=== PATIENT | female | born 1950 | race Hispanic/Latino ===

== ENCOUNTER 2017-11-17 03:46 | Inpatient (IN) | payer MEDICARE, MEDICAID ==
[~2017-11-17] VITALS: Ht 165.1 cm; Wt 55.5 kg
[2017-11-17 03:10] VITALS: BP 159/60
[2017-11-17] MEDS ORDERED: DEXTROSE 50%-WATER 50 ML DISP.SYRIN IV ONE (04:39)
[2017-11-17] MEDS ORDERED: DEXTROSE 50%-WATER 50 ML DISP.SYRIN IV PRN (04:45)
[2017-11-17] MEDS ORDERED: GLUCAGON 1MG KIT 1 MG ML IM PRN (04:45)
[2017-11-17] MEDS ORDERED: SODIUM CHLORIDE 0.9% 1000ML 1,000 ML IV SCH (05:43)
[2017-11-17 05:56] LABS: BASOPHILS % (AUTO) 0.4 % (0.0-5.0); EOSINOPHILS % (AUTO) 0.8 % (0.0-8.0); HEMATOCRIT 32.9 % (36-48); LYMPHOCYTES % (AUTO) 7.5 % (21.0-51.0); MEAN CORPUSCULAR HEMOGLOBIN 30.6 pg (27.0-33.0); MEAN CORPUSCULAR HGB CONC 32.5 g/dL (32.0-36.0); MEAN CORPUSCULAR VOLUME 94.3 fL (79-99); MONOCYTES % (AUTO) 11.4 % (3.0-13.0); NEUTROPHILS % (AUTO) 79.9 % (40.0-77.0); PLATELET COUNT (AUTO) 69 K/uL (130-400); RED BLOOD CELL COUNT(AUTO) 3.49 MIL/uL (4.00-5.50); RED CELL DISTRIBUTION WIDTH 18.8 % (11.0-15.5); WHITE BLOOD COUNT (AUTO) 5.5 K/uL (4.8-10.8)
[2017-11-17 06:04] LABS: PARTIAL THROMBOPLASTIN TIME 62.6 SEC (26.3-35.5)
[2017-11-17 06:08] LABS: HEMOGLOBIN A1C 4.5 % (4.0-6.0)
[2017-11-17 06:14] LABS: CREATININE 4.6 mg/dL (0.5-1.5); POTASSIUM 4.4 mmol/L (3.5-5.1)
[2017-11-17] MEDS: INSULIN HUMULIN R 100 UNIT/ML 3ML SQ SCH ×4 (07:30→21:00)
[2017-11-17 07:33] VITALS: BP 164/89
[2017-11-17 07:53] LABS: INR 4.38 (0.85-1.15); PROTHROMBIN TIME 44.7 SEC (9.6-11.6)
[2017-11-17] MEDS ORDERED: METO100T14 PO (08:25)
[2017-11-17] MEDS ORDERED: WARF3TAB59 PO (08:25)
[2017-11-17] MEDS ORDERED: DOXE25 PO (08:25)
[2017-11-17] MEDS ORDERED: SIMV40TA5 PO (08:25)
[2017-11-17] MEDS ORDERED: HYDR-4154 PO (08:25)
[2017-11-17] MEDS ORDERED: DIGO125T87 PO (08:25)
[2017-11-17] MEDS ORDERED: PANTOPRAZOLE SODIUM 40 MG TABLET.DR PO SCH (09:00)
[2017-11-17] MEDS ORDERED: MORPHINE SULFATE 2 MG/ML 1ML SYG IVP PRN (09:45)
[2017-11-17] MEDS: HYDRALAZINE HCL 25 MG TABLET PO SCH (11:08)
[2017-11-17] MEDS: METOPROLOL TARTRATE 50 MG TAB PO SCH (11:08)
[2017-11-17] MEDS: DIGOXIN 125 MCG TABLET PO SCH (11:09)
[2017-11-17 11:33] VITALS: BP 170/76
[2017-11-17 11:39] LABS: PARTIAL THROMBOPLASTIN TIME 59.4 SEC (26.3-35.5)
[2017-11-17 11:42] LABS: INR 5.15 (0.85-1.15); PROTHROMBIN TIME 52.4 SEC (9.6-11.6)
[2017-11-17 13:26] VITALS: BP 134/46
[2017-11-17 16:02] VITALS: BP 134/68
[2017-11-17 19:56] VITALS: BP 139/54
[2017-11-17] MEDS: SIMVASTATIN 20 MG TABLET PO SCH (20:45)
[2017-11-17] MEDS: DOXEPIN HCL 25 MG CAP PO SCH (21:05)
[2017-11-17 22:39] LABS: INR 2.75 (0.85-1.15); PARTIAL THROMBOPLASTIN TIME 49.2 SEC (26.3-35.5); PROTHROMBIN TIME 28.3 SEC (9.6-11.6)
[2017-11-18 00:15] VITALS: BP 139/55
[2017-11-18 03:22] VITALS: BP 149/64
[2017-11-18 04:05] LABS: HEMATOCRIT 34.5 % (36-48); MEAN CORPUSCULAR HEMOGLOBIN 30.1 pg (27.0-33.0); MEAN CORPUSCULAR HGB CONC 31.8 g/dL (32.0-36.0); MEAN CORPUSCULAR VOLUME 94.7 fL (79-99); NUCLEATED RED BLOOD CELLS 0.2 % (0.0-0.19); PLATELET COUNT (AUTO) 60 K/uL (130-400); RED BLOOD CELL COUNT(AUTO) 3.64 MIL/uL (4.00-5.50); RED CELL DISTRIBUTION WIDTH 18.3 % (11.0-15.5); WHITE BLOOD COUNT (AUTO) 5.7 K/uL (4.8-10.8)
[2017-11-18 04:24] LABS: CREATININE 5.6 mg/dL (0.5-1.5); PHOSPHORUS 4.1 mg/dL (2.5-4.9); POTASSIUM 4.6 mmol/L (3.5-5.1)
[2017-11-18 04:37] LABS: INR 3.05 (0.85-1.15); PARTIAL THROMBOPLASTIN TIME 49.5 SEC (26.3-35.5); PROTHROMBIN TIME 31.3 SEC (9.6-11.6)
[2017-11-18] MEDS: INSULIN HUMULIN R 100 UNIT/ML 3ML SQ SCH ×4 (05:32→21:00)
[2017-11-18 07:43] VITALS: BP 161/70
[2017-11-18 10:18] LABS: INR 3.24 (0.85-1.15); PARTIAL THROMBOPLASTIN TIME 48.8 SEC (26.3-35.5); PROTHROMBIN TIME 33.2 SEC (9.6-11.6)
[2017-11-18] MEDS: ZOSYN 3.375GM+NS 50ML 50 ML IV SCH ×2 (10:21→10:29)
[2017-11-18] MEDS: METOPROLOL TARTRATE 50 MG TAB PO SCH (10:23)
[2017-11-18] MEDS: HYDRALAZINE HCL 25 MG TABLET PO SCH (10:24)
[2017-11-18] MEDS: DIGOXIN 125 MCG TABLET PO SCH ×3 (10:24→15:44)
[2017-11-18] MEDS: FOLIC ACID/VITAMIN B COMP W-C 1 MG CAPSULE PO SCH (10:24)
[2017-11-18] MEDS: SUCRALFATE 1 GM/10 ML PO SCH ×3 (10:29→20:50)
[2017-11-18 11:37] VITALS: BP 157/64
[2017-11-18] MEDS ORDERED: SODIUM CHLORIDE 0.9% 250 ML IV ONE (12:05)
[2017-11-18] MEDS: PANTOPRAZOLE SODIUM 40 MG TABLET.DR PO SCH (15:51)
[2017-11-18] MEDS ORDERED: SODIUM CHLORIDE 0.9% 1000ML 1,000 ML IV PRN (16:15)
[2017-11-18] MEDS ORDERED: ALBUMIN (HUMAN) 25% 100 ML IV PRN (16:15)
[2017-11-18] MEDS ORDERED: 0.9% SODIUM CHLORIDE 250 ML IV BAG IV PRN (16:15)
[2017-11-18 16:29] VITALS: BP 136/65
[2017-11-18 20:04] VITALS: BP 153/62
[2017-11-18 20:31] LABS: INR 2.29 (0.85-1.15); PARTIAL THROMBOPLASTIN TIME 44.8 SEC (26.3-35.5); PROTHROMBIN TIME 23.7 SEC (9.6-11.6)
[2017-11-18] MEDS: DOXEPIN HCL 25 MG CAP PO SCH (20:50)
[2017-11-18] MEDS: SIMVASTATIN 20 MG TABLET PO SCH (20:51)
[2017-11-19] VITALS (7 sets, daily range): BP systolic 138–182; BP diastolic 50–77
[2017-11-19 04:05] LABS: BASOPHILS % (AUTO) 0.7 % (0.0-5.0); EOSINOPHILS % (AUTO) 0.3 % (0.0-8.0); HEMATOCRIT 31.3 % (36-48); LYMPHOCYTES % (AUTO) 9.2 % (21.0-51.0); MEAN CORPUSCULAR HEMOGLOBIN 28.9 pg (27.0-33.0); MEAN CORPUSCULAR HGB CONC 30.6 g/dL (32.0-36.0); MEAN CORPUSCULAR VOLUME 94.5 fL (79-99); MONOCYTES % (AUTO) 11.1 % (3.0-13.0); NEUTROPHILS % (AUTO) 78.7 % (40.0-77.0); NUCLEATED RED BLOOD CELLS 0.1 % (0.0-0.19); PLATELET COUNT (AUTO) 79 K/uL (130-400); RED BLOOD CELL COUNT(AUTO) 3.32 MIL/uL (4.00-5.50); RED CELL DISTRIBUTION WIDTH 18.3 % (11.0-15.5); WHITE BLOOD COUNT (AUTO) 5.3 K/uL (4.8-10.8)
[2017-11-19] MEDS: DICYCLOMINE HCL 20 MG TAB PO PRN ×3 (04:07→23:05)
[2017-11-19 04:21] LABS: ALBUMIN 2.6 g/dL (3.5-5.0); BILIRUBIN,DIRECT 0.9 mg/dL (0.0-0.3); BILIRUBIN,TOTAL 1.4 mg/dL (0.2-1.0); CREATININE 3.8 mg/dL (0.5-1.5); POTASSIUM 3.8 mmol/L (3.5-5.1); TOTAL PROTEIN, SERUM 6.3 g/dL (6.0-8.3)
[2017-11-19] MEDS: INSULIN HUMULIN R 100 UNIT/ML 3ML SQ SCH ×4 (06:18→21:00)
[2017-11-19] MEDS: SUCRALFATE 1 GM/10 ML PO SCH ×4 (07:30→22:34)
[2017-11-19] MEDS: PHYTONADIONE 10 MG in SODIUM CHLORIDE 0.9% 50 ML IV SCH (11:59)
[2017-11-19] MEDS: HYDRALAZINE HCL 25 MG TABLET PO SCH (12:00)
[2017-11-19] MEDS: DIGOXIN 125 MCG TABLET PO SCH (12:00)
[2017-11-19] MEDS: FOLIC ACID/VITAMIN B COMP W-C 1 MG CAPSULE PO SCH (12:01)
[2017-11-19] MEDS: METOPROLOL TARTRATE 50 MG TAB PO SCH (12:01)
[2017-11-19] MEDS: PANTOPRAZOLE SODIUM 40 MG TABLET.DR PO SCH ×2 (12:01→16:58)
[2017-11-19] MEDS: ZOSYN 3.375GM+NS 50ML 50 ML IV SCH ×2 (12:02→22:33)
[2017-11-19] MEDS: SIMVASTATIN 20 MG TABLET PO SCH (22:34)
[2017-11-19] MEDS: DOXEPIN HCL 25 MG CAP PO SCH (22:34)
[2017-11-20] VITALS (8 sets, daily range): BP systolic 119–181; BP diastolic 49–76
[2017-11-20 05:44] LABS: BASOPHILS % (AUTO) 0.6 % (0.0-5.0); EOSINOPHILS % (AUTO) 0.3 % (0.0-8.0); HEMATOCRIT 35.1 % (36-48); MEAN CORPUSCULAR HEMOGLOBIN 29.1 pg (27.0-33.0); MEAN CORPUSCULAR HGB CONC 31.2 g/dL (32.0-36.0); MEAN CORPUSCULAR VOLUME 93.3 fL (79-99); MONOCYTES % (AUTO) 9.8 % (3.0-13.0); NEUTROPHILS % (AUTO) 79.3 % (40.0-77.0); NUCLEATED RED BLOOD CELLS 0.1 % (0.0-0.19); PLATELET COUNT (AUTO) 107 K/uL (130-400); RED BLOOD CELL COUNT(AUTO) 3.76 MIL/uL (4.00-5.50); RED CELL DISTRIBUTION WIDTH 18.3 % (11.0-15.5); WHITE BLOOD COUNT (AUTO) 6.6 K/uL (4.8-10.8)
[2017-11-20 05:50] LABS: CREATININE 4.9 mg/dL (0.5-1.5); MAGNESIUM 2.1 mg/dL (1.80-2.40); POTASSIUM 4.1 mmol/L (3.5-5.1)
[2017-11-20 05:54] LABS: INR 1.41 (0.85-1.15); PARTIAL THROMBOPLASTIN TIME 38.8 SEC (26.3-35.5); PROTHROMBIN TIME 14.7 SEC (9.6-11.6)
[2017-11-20] MEDS: INSULIN HUMULIN R 100 UNIT/ML 3ML SQ SCH ×4 (06:03→21:00)
[2017-11-20] MEDS: PANTOPRAZOLE SODIUM 40 MG TABLET.DR PO SCH ×2 (06:21→17:41)
[2017-11-20] MEDS: SUCRALFATE 1 GM/10 ML PO SCH ×4 (06:21→22:21)
[2017-11-20] MEDS: ZOSYN 3.375GM+NS 50ML 50 ML IV SCH ×2 (10:00→22:23)
[2017-11-20] MEDS: PHYTONADIONE 10 MG in SODIUM CHLORIDE 0.9% 50 ML IV SCH (10:00)
[2017-11-20] MEDS: FOLIC ACID/VITAMIN B COMP W-C 1 MG CAPSULE PO SCH (17:41)
[2017-11-20] MEDS: METOPROLOL TARTRATE 50 MG TAB PO SCH (21:00)
[2017-11-20] MEDS: SIMVASTATIN 20 MG TABLET PO SCH (22:22)
[2017-11-20] MEDS: DOXEPIN HCL 25 MG CAP PO SCH (22:23)
[2017-11-20] MEDS: HYDRALAZINE HCL 25 MG TABLET PO SCH (22:23)
[2017-11-21 03:59] LABS: BASOPHILS % (AUTO) 1.2 % (0.0-5.0); EOSINOPHILS % (AUTO) 0.2 % (0.0-8.0); HEMATOCRIT 33.1 % (36-48); LYMPHOCYTES % (AUTO) 11.3 % (21.0-51.0); MEAN CORPUSCULAR HEMOGLOBIN 29.8 pg (27.0-33.0); MEAN CORPUSCULAR HGB CONC 31.6 g/dL (32.0-36.0); MONOCYTES % (AUTO) 10.7 % (3.0-13.0); NEUTROPHILS % (AUTO) 76.6 % (40.0-77.0); PLATELET COUNT (AUTO) 134 K/uL (130-400); RED BLOOD CELL COUNT(AUTO) 3.52 MIL/uL (4.00-5.50); RED CELL DISTRIBUTION WIDTH 17.7 % (11.0-15.5); WHITE BLOOD COUNT (AUTO) 6.7 K/uL (4.8-10.8)
[2017-11-21 04:00] VITALS: BP 161/65
[2017-11-21 04:10] LABS: INR 1.37 (0.85-1.15); PARTIAL THROMBOPLASTIN TIME 31.7 SEC (26.3-35.5); PROTHROMBIN TIME 14.3 SEC (9.6-11.6)
[2017-11-21 04:15] LABS: ALBUMIN 2.6 g/dL (3.5-5.0); BILIRUBIN,TOTAL 1.3 mg/dL (0.2-1.0); CREATININE 3.6 mg/dL (0.5-1.5); POTASSIUM 3.4 mmol/L (3.5-5.1); TOTAL PROTEIN, SERUM 6.5 g/dL (6.0-8.3)
[2017-11-21] MEDS: DICYCLOMINE HCL 20 MG TAB PO PRN (05:33)
[2017-11-21] MEDS: PANTOPRAZOLE SODIUM 40 MG TABLET.DR PO SCH ×2 (06:40→16:30)
[2017-11-21] MEDS: SUCRALFATE 1 GM/10 ML PO SCH ×3 (06:40→21:00)
[2017-11-21] MEDS: INSULIN HUMULIN R 100 UNIT/ML 3ML SQ SCH ×3 (06:41→21:00)
[2017-11-21 08:03] VITALS: BP 170/62
[2017-11-21] MEDS: FOLIC ACID/VITAMIN B COMP W-C 1 MG CAPSULE PO SCH (09:00)
[2017-11-21] MEDS: METOPROLOL TARTRATE 50 MG TAB PO SCH ×2 (09:05→21:01)
[2017-11-21] MEDS: HYDRALAZINE HCL 25 MG TABLET PO SCH ×2 (09:05→21:01)
[2017-11-21] MEDS: DIGOXIN 125 MCG TABLET PO SCH (09:06)
[2017-11-21] MEDS: ZOSYN 3.375GM+NS 50ML 50 ML IV SCH ×2 (09:09→22:32)
[2017-11-21] MEDS: PHYTONADIONE 10 MG in SODIUM CHLORIDE 0.9% 50 ML IV SCH (09:09)
[2017-11-21 12:12] VITALS: BP 159/79
[2017-11-21 15:45] VITALS: BP 155/69
[2017-11-21 20:01] VITALS: BP 139/63
[2017-11-21] MEDS: DOXEPIN HCL 25 MG CAP PO SCH (21:01)
[2017-11-21] MEDS: SIMVASTATIN 20 MG TABLET PO SCH (21:01)
[2017-11-21 23:49] VITALS: BP 140/60
[2017-11-22] VITALS (13 sets, daily range): BP systolic 124–170; BP diastolic 42–76
[2017-11-22 03:44] LABS: MEAN CORPUSCULAR HGB CONC 32.2 g/dL (32.0-36.0); MEAN CORPUSCULAR VOLUME 93.1 fL (79-99); PLATELET COUNT (AUTO) 155 K/uL (130-400); RED BLOOD CELL COUNT(AUTO) 3.55 MIL/uL (4.00-5.50); RED CELL DISTRIBUTION WIDTH 18.4 % (11.0-15.5); WHITE BLOOD COUNT (AUTO) 6.1 K/uL (4.8-10.8)
[2017-11-22 03:51] LABS: CREATININE 4.8 mg/dL (0.5-1.5); POTASSIUM 3.4 mmol/L (3.5-5.1)
[2017-11-22] MEDS: INSULIN HUMULIN R 100 UNIT/ML 3ML SQ SCH ×4 (06:04→20:36)
[2017-11-22] MEDS: SUCRALFATE 1 GM/10 ML PO SCH ×4 (06:05→20:34)
[2017-11-22] MEDS: PANTOPRAZOLE SODIUM 40 MG TABLET.DR PO SCH ×2 (07:30→16:31)
[2017-11-22] MEDS ORDERED: LIDOCAINE HCL-MPF 2% 5ML VIAL ONE (08:44)
[2017-11-22] MEDS ORDERED: BIVALIRUDIN 250 MG/VIAL IV ONE (08:45)
[2017-11-22] MEDS ORDERED: HEPARIN SODIUM 1000UNIT/ML 10ML VIAL ONE (08:45)
[2017-11-22] MEDS ORDERED: IOHEXOL 350 MG/ML 100ML INFUS..BTL IV ONE (08:45)
[2017-11-22] MEDS ORDERED: IOHEXOL-350 50ML VIAL IV ONE (08:45)
[2017-11-22] MEDS ORDERED: NITROGLYCERIN 5 MG/ML 10 ML VIAL IV ONE ×2 (08:45→09:10)
[2017-11-22] MEDS ORDERED: ENALAPRILAT DIHYDRATE 1.25 MG/ML 2ML VIAL IVP ONE ×2 (09:52→10:01)
[2017-11-22] MEDS: PHYTONADIONE 10 MG in SODIUM CHLORIDE 0.9% 50 ML IV SCH (10:00)
[2017-11-22] MEDS: METOPROLOL TARTRATE 50 MG TAB PO SCH ×2 (10:10→20:35)
[2017-11-22] MEDS: HYDRALAZINE HCL 25 MG TABLET PO SCH ×2 (10:10→20:36)
[2017-11-22] MEDS: FOLIC ACID/VITAMIN B COMP W-C 1 MG CAPSULE PO SCH (16:31)
[2017-11-22] MEDS: DIGOXIN 125 MCG TABLET PO SCH (16:32)
[2017-11-22] MEDS: ZOSYN 3.375GM+NS 50ML 50 ML IV SCH (16:32)
[2017-11-22] MEDS: SIMVASTATIN 20 MG TABLET PO SCH (20:35)
[2017-11-22] MEDS: DOXEPIN HCL 25 MG CAP PO SCH (20:36)
[2017-11-22] MEDS: DICYCLOMINE HCL 20 MG TAB PO PRN (20:50)
[2017-11-23 03:36] VITALS: BP 142/70
[2017-11-23] MEDS: ZOSYN 3.375GM+NS 50ML 50 ML IV SCH ×2 (04:02→09:47)
[2017-11-23 04:05] LABS: CREATININE 3.4 mg/dL (0.5-1.5); POTASSIUM 3.7 mmol/L (3.5-5.1)
[2017-11-23] MEDS: INSULIN HUMULIN R 100 UNIT/ML 3ML SQ SCH ×4 (06:33→20:48)
[2017-11-23 06:52] LABS: HEMATOCRIT 37.9 % (36-48); MEAN CORPUSCULAR HEMOGLOBIN 29.2 pg (27.0-33.0); MEAN CORPUSCULAR HGB CONC 31.7 g/dL (32.0-36.0); MEAN CORPUSCULAR VOLUME 92.3 fL (79-99); NUCLEATED RED BLOOD CELLS 0.1 % (0.0-0.19); PLATELET COUNT (AUTO) 148 K/uL (130-400); RED BLOOD CELL COUNT(AUTO) 4.11 MIL/uL (4.00-5.50); RED CELL DISTRIBUTION WIDTH 18.1 % (11.0-15.5); WHITE BLOOD COUNT (AUTO) 6.4 K/uL (4.8-10.8)
[2017-11-23 07:08] VITALS: BP 160/58
[2017-11-23] MEDS: METOPROLOL TARTRATE 50 MG TAB PO SCH ×2 (09:46→20:20)
[2017-11-23] MEDS: HYDRALAZINE HCL 25 MG TABLET PO SCH ×2 (09:47→20:19)
[2017-11-23] MEDS: FOLIC ACID/VITAMIN B COMP W-C 1 MG CAPSULE PO SCH (09:47)
[2017-11-23] MEDS: PANTOPRAZOLE SODIUM 40 MG TABLET.DR PO SCH ×2 (09:47→17:05)
[2017-11-23] MEDS: PHYTONADIONE 10 MG in SODIUM CHLORIDE 0.9% 50 ML IV SCH (09:48)
[2017-11-23] MEDS: DIGOXIN 125 MCG TABLET PO SCH (09:48)
[2017-11-23] MEDS: SUCRALFATE 1 GM/10 ML PO SCH (09:48)
[2017-11-23 11:15] VITALS: BP 167/62
[2017-11-23 16:29] VITALS: BP 159/79
[2017-11-23 19:41] VITALS: BP 158/67
[2017-11-23] MEDS: DOXEPIN HCL 25 MG CAP PO SCH (20:19)
[2017-11-23] MEDS: DICYCLOMINE HCL 20 MG TAB PO PRN (20:19)
[2017-11-23] MEDS: SIMVASTATIN 20 MG TABLET PO SCH (20:19)
[2017-11-23 23:27] VITALS: BP 152/63
[2017-11-24] MEDS: DICYCLOMINE HCL 20 MG TAB PO PRN ×2 (03:05→16:15)
[2017-11-24 03:58] VITALS: BP 157/63
[2017-11-24 04:01] LABS: HEMATOCRIT 32.8 % (36-48); MEAN CORPUSCULAR HEMOGLOBIN 30.4 pg (27.0-33.0); MEAN CORPUSCULAR HGB CONC 32.5 g/dL (32.0-36.0); MEAN CORPUSCULAR VOLUME 93.4 fL (79-99); PLATELET COUNT (AUTO) 157 K/uL (130-400); RED BLOOD CELL COUNT(AUTO) 3.51 MIL/uL (4.00-5.50); RED CELL DISTRIBUTION WIDTH 18.6 % (11.0-15.5); WHITE BLOOD COUNT (AUTO) 5.5 K/uL (4.8-10.8)
[2017-11-24 04:11] LABS: CREATININE 4.9 mg/dL (0.5-1.5); PHOSPHORUS 3.1 mg/dL (2.5-4.9); POTASSIUM 3.3 mmol/L (3.5-5.1)
[2017-11-24] MEDS: INSULIN HUMULIN R 100 UNIT/ML 3ML SQ SCH ×4 (05:31→21:00)
[2017-11-24 07:47] VITALS: BP 147/66
[2017-11-24] MEDS: DIGOXIN 125 MCG TABLET PO SCH (09:00)
[2017-11-24] MEDS: METOPROLOL TARTRATE 50 MG TAB PO SCH ×2 (09:18→21:00)
[2017-11-24] MEDS: FOLIC ACID/VITAMIN B COMP W-C 1 MG CAPSULE PO SCH (09:18)
[2017-11-24] MEDS: PANTOPRAZOLE SODIUM 40 MG TABLET.DR PO SCH ×2 (09:18→16:15)
[2017-11-24] MEDS: HYDRALAZINE HCL 25 MG TABLET PO SCH ×2 (09:19→21:16)
[2017-11-24 11:31] VITALS: BP 156/70
[2017-11-24] MEDS: LOPERAMIDE HCL 1 MG/5 ML UNIT DOSE CUP PO PRN (12:20)
[2017-11-24 16:28] VITALS: BP 151/52
[2017-11-24 19:49] VITALS: BP 135/52
[2017-11-24 19:51] LABS: EOSINOPHILS % (AUTO) 0.4 % (0.0-8.0); HEMATOCRIT 32.9 % (36-48); MEAN CORPUSCULAR HEMOGLOBIN 29.8 pg (27.0-33.0); MEAN CORPUSCULAR HGB CONC 32.2 g/dL (32.0-36.0); MEAN CORPUSCULAR VOLUME 92.6 fL (79-99); MONOCYTES % (AUTO) 9.4 % (3.0-13.0); NEUTROPHILS % (AUTO) 76.2 % (40.0-77.0); NUCLEATED RED BLOOD CELLS 0.1 % (0.0-0.19); PLATELET COUNT (AUTO) 169 K/uL (130-400); RED BLOOD CELL COUNT(AUTO) 3.56 MIL/uL (4.00-5.50); RED CELL DISTRIBUTION WIDTH 18.2 % (11.0-15.5); WHITE BLOOD COUNT (AUTO) 5.8 K/uL (4.8-10.8)
[2017-11-24 20:16] LABS: CREATININE 5.7 mg/dL (0.5-1.5); POTASSIUM 3.4 mmol/L (3.5-5.1); THYROID STIMULATING HORMONE 12.87 uIU/mL (0.36-3.74)
[2017-11-24] MEDS: DOXEPIN HCL 25 MG CAP PO SCH (21:15)
[2017-11-24] MEDS: SIMVASTATIN 20 MG TABLET PO SCH (21:15)
[2017-11-24 23:50] VITALS: BP 148/57
[2017-11-25 03:53] LABS: ALBUMIN 2.8 g/dL (3.5-5.0); CREATININE 6.3 mg/dL (0.5-1.5); POTASSIUM 3.7 mmol/L (3.5-5.1); TOTAL PROTEIN, SERUM 7.1 g/dL (6.0-8.3)
[2017-11-25 03:55] VITALS: BP 146/57
[2017-11-25] MEDS: INSULIN HUMULIN R 100 UNIT/ML 3ML SQ SCH ×3 (06:18→16:30)
[2017-11-25 08:12] VITALS: BP 158/71
[2017-11-25] MEDS ORDERED: HYDR-4154 PO (08:31)
[2017-11-25] MEDS ORDERED: METO50 PO (08:31)
[2017-11-25] MEDS: FOLIC ACID/VITAMIN B COMP W-C 1 MG CAPSULE PO SCH (09:13)
[2017-11-25] MEDS: PANTOPRAZOLE SODIUM 40 MG TABLET.DR PO SCH ×2 (09:14→16:42)
[2017-11-25] MEDS: HYDRALAZINE HCL 25 MG TABLET PO SCH (09:14)
[2017-11-25] MEDS: METOPROLOL TARTRATE 50 MG TAB PO SCH (09:14)
[2017-11-25] MEDS: DIGOXIN 125 MCG TABLET PO SCH (09:16)
[2017-11-25] MEDS: LOPERAMIDE HCL 1 MG/5 ML UNIT DOSE CUP PO PRN (10:26)
[2017-11-25 11:27] VITALS: BP 150/56
[2017-11-25 16:36] VITALS: BP 184/68
== END 2017-11-25 18:09 | disposition home or self-care (01) | DRG 286 ==
LOC: EDHIP 03:46 → 2AH 03:47
PROVIDERS: ADMIT Hospitalist; ATTEND Hospitalist
PROC: 5A1D70Z Performance of Urinary Filtration, Intermittent, Less than 6 Hours Per Day (ICD-10-PCS; 2017-11-18)
PROC: 30233L1 Transfusion of Nonautologous Fresh Plasma into Peripheral Vein, Percutaneous Approach (ICD-10-PCS; 2017-11-19)
PROC: 30233K1 Transfusion of Nonautologous Frozen Plasma into Peripheral Vein, Percutaneous Approach (ICD-10-PCS; 2017-11-19)
PROC: 5A1D70Z Performance of Urinary Filtration, Intermittent, Less than 6 Hours Per Day (ICD-10-PCS; 2017-11-20)
PROC: B2151ZZ Fluoroscopy of Left Heart using Low Osmolar Contrast (ICD-10-PCS; principal; 2017-11-22)
PROC: B2111ZZ Fluoroscopy of Multiple Coronary Arteries using Low Osmolar Contrast (ICD-10-PCS; 2017-11-22)
PROC: 4A023N8 Measurement of Cardiac Sampling and Pressure, Bilateral, Percutaneous Approach (ICD-10-PCS; 2017-11-22)
PROC: 5A1D70Z Performance of Urinary Filtration, Intermittent, Less than 6 Hours Per Day (ICD-10-PCS; 2017-11-22)
PROC: 5A1D70Z Performance of Urinary Filtration, Intermittent, Less than 6 Hours Per Day (ICD-10-PCS; 2017-11-25)
DX: I13.2 Hypertensive heart and chronic kidney disease with heart failure and with stage 5 chronic kidney disease, or end stage renal disease (principal); I50.23 Acute on chronic systolic (congestive) heart failure; N18.6 End stage renal disease; G93.40 Encephalopathy, unspecified; D68.9 Coagulation defect, unspecified; E78.5 Hyperlipidemia, unspecified; I48.2 Chronic atrial fibrillation; E11.21 Type 2 diabetes mellitus with diabetic nephropathy; E11.22 Type 2 diabetes mellitus with diabetic chronic kidney disease; E11.43 Type 2 diabetes mellitus with diabetic autonomic (poly)neuropathy; E11.649 Type 2 diabetes mellitus with hypoglycemia without coma; D64.9 Anemia, unspecified; D69.6 Thrombocytopenia, unspecified; E11.51 Type 2 diabetes mellitus with diabetic peripheral angiopathy without gangrene; I08.1 Rheumatic disorders of both mitral and tricuspid valves; I25.10 Atherosclerotic heart disease of native coronary artery without angina pectoris; I27.20 Pulmonary hypertension, unspecified; K31.84 Gastroparesis; K52.9 Noninfective gastroenteritis and colitis, unspecified; S80.12XA Contusion of left lower leg, initial encounter; Z79.01 Long term (current) use of anticoagulants; Z99.2 Dependence on renal dialysis; Z90.49 Acquired absence of other specified parts of digestive tract
CPT/HCPCS: 36415; 36430; 71045; 73700; 76882; 80048; 80053; 80076; 82553; 82948; 83036; 83735; 84100; 84443; 84484; 85025; 85027; 85610; 85730; 86850; 86900; 86901; 86927; 87205; 87324; 90935; 93306; 93460; C1760; C1769; C1894; J0583; J1644; J1815; J2543; J3430; J3490; J7030; J7070; P9017; Q9967